=== PATIENT | female | born 1975 | race Caucasian/White ===

== ENCOUNTER 2019-01-04 01:37 | Emergency (ER) | payer OTHER ==
--- NOTE | 2019-01-04 02:49 | EDM.PDOC ---
ED HPI GENERAL MEDICAL PROBLEM - General Chief Complaint: Genitourinary Problem Stated Complaint: UTI? 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 She is visiting the area from [place]. She reports intermittent shaking chills and fevers starting yesterday evening. This has been associated with a sensation of bladder fullness. No dysuria. No hematuria. Also reports some mild bilateral flank pain. Mild nausea, no vomiting. No change in BM. No vaginal discharge or bleeding. No prior abdominal surgeries. Does have hx of UTI. bladder Pain Score (Numeric/FACES): 1 - Related Data Allergies Allergy/AdvReac Type Severity Reaction Status Date / Time levofloxacin [From Levaquin] Allergy Hives Verified 01/04/19 01:53 Home Meds: Home Meds NK [No Known Home Meds] 01/04/19 [History] Past Medical History Genitourinary History: Reports: UTI, Recurrent FINANCE MGR History: Reports: - Past Surgical History Musculoskeletal Surgical History: Reports: Other (See Below) Other Musculoskeletal Surgeries/Procedures:: foot surgery Social & Family History - Tobacco Use Smoking Status *Q: Never Smoker - Caffeine Use Caffeine Use: Reports: Coffee, Soda - Alcohol Use Days Per Week of Alcohol Use: 2 Number of Drinks Per Day: 2 Total Drinks Per Week: 4 - Recreational Drug Use Recreational Drug Use: No ED ROS GENERAL - Review of Systems Review Of Systems: See Below Constitutional: Reports: No Symptoms HEENT: Reports: No Symptoms Respiratory: Reports: No Symptoms Cardiovascular: Reports: No Symptoms Endocrine: Reports: No Symptoms GI/Abdominal: Reports: No Symptoms : Reports: Flank Pain Musculoskeletal: Reports: No Symptoms Skin: Reports: No Symptoms Neurological: Reports: No Symptoms Psychiatric: Reports: No Symptoms Hematologic/Lymphatic: Reports: No Symptoms Immunologic: Reports: No Symptoms ED EXAM, RENAL/ - Physical Exam Exam: See Below Exam Limited By: No Limitations General Appearance: Alert, No Apparent Distress Ears: Normal External Exam Nose: Normal Inspection Throat/Mouth: Normal Inspection Head: Atraumatic, Normocephalic Neck: Normal Inspection Respiratory/Chest: Lungs Clear Cardiovascular: Regular Rate, Rhythm GI/Abdominal: Normal Bowel Sounds, Soft, Non-Tender Back Exam: CVA Tenderness (R), CVA Tenderness (L) Extremities: Normal Inspection Neurological: Alert, Oriented Psychiatric: Normal Affect, Normal Mood Skin Exam: Warm, Dry Course - Vital Signs Last Recorded V/S: Last Vital Signs Temp 37.4 C 01/04/19 01:56 Pulse 96 01/04/19 01:56 Resp 18 01/04/19 01:56 BP 136/80 01/04/19 01:56 Pulse Ox 96 01/04/19 01:56 - Orders/Labs/Meds Orders: Active Orders 24 hr Category Date Time Status CULTURE URINE [RM] Stat Lab 01/04/19 02:44 Ordered Labs: Laboratory Tests 01/04/19 01/04/19 Range/Units 01:46 02:27 Urine Color Yellow Urine Appearance Clear Urine pH 6.0 (4.5-8.0) Ur Specific [place] 1.005 L (1.008-1.030) Urine Protein Negative (NEGATIVE) mg/dL Urine Glucose (UA) Normal (NEGATIVE) mg/dL Urine Ketones Negative (NEGATIVE) mg/dL Urine Occult Blood Trace (NEGATIVE) Urine Nitrite Negative (NEGATIVE) Urine Bilirubin Negative (NEGATIVE) Urine Urobilinogen Normal (NORMAL) mg/dL Ur Leukocyte Esterase Small (NEGATIVE) Urine RBC 0-5 (0-5) Urine WBC 0-5 (0-5) Ur Epithelial Cells Few Amorphous Sediment Few Urine Bacteria Few Urine Mucus Not seen Urine HCG, Qual Negative - Re-Assessments/Exams Free Text/Narrative Re-Assessment/Exam: 43 yo presents with concerns of fevers, rigors, bilateral flank pain. Has history of UTI. Normal vitals here, although did recently take ibuprofen. UA unrevealing, although has been vigorously taking PO fluids. Clinically appears to have pyelonephritis. Discussed that rigors are concerning for gram negative infection, and that we need to have concern for abscess or other source of intraabdominal infection. Patients wishes to defer further work-up of this for now pending clinical course. Prescribed ciprofloxacin for presumed pyelo. Carefully discussed indications to return to the ER. Discharged 01/04/19 03:32 Departure - Departure Time of Disposition: 02:48 Disposition: Home, Self-Care 01 Clinical Impression: Pyelonephritis - Discharge Information Instructions: Pyelonephritis, Adult Referrals: PCP,None [Primary Care Provider] - Forms: ED Department Discharge Additional Instructions: Please take the prescribed antibiotic Return to the ER if you feel your condition is worsening as discussed. - My Orders Last 24 Hours: My Active Orders 01/04/19 02:44 CULTURE URINE [RM] Stat - Assessment/Plan Last 24 Hours: My Active Orders 01/04/19 02:44 CULTURE URINE [RM] Stat
== END 2019-01-04 02:56 | disposition home or self-care (01) ==
LOC: JP.ED 01:37
DX: N12 Tubulo-interstitial nephritis, not specified as acute or chronic (principal)
CPT/HCPCS: 81001; 81025; 87086; 87088; 87186; 99283